=== PATIENT | female | born 1965 | race Two or more races ===

== ENCOUNTER 2018-05-28 07:11 | Outpatient (CLI) | payer OTHER | END 2018-05-28 08:55 | disposition home or self-care (01) | LOC: SONOGRAMA 07:11 | DX: E04.2 Nontoxic multinodular goiter (principal) ==

== ENCOUNTER 2025-03-04 04:50 | Day surgery (SDC) | payer OTHER ==
[2025-02-26 08:29] LABS: PH,URINE 5.5 (5.0-8.0); URINE APPEARANCE Clear; URINE BILIRRUBIN Negative (NEGATIVE); URINE BLOOD Negative; URINE COLOR Yellow; URINE GLUCOSE Negative (NEGATIVE); URINE KETONE Negative (NEGATIVE); URINE LEUKOCYTE Negative; URINE NITRATE Negative; URINE PROTEIN Negative (NEGATIVE); URINE UROBILINOGEN 0.2 E.U./dl
[2025-02-26 08:31] LABS: HEMATOCRIT 38.3 % (36.0-45.00); HEMOGLOBIN 13.1 g/dL (12.0-15.00); MEAN CELL VOLUME 85.6 fL (80.00-100.00); MEAN CORPUSCULAR HEMOGLOBIN 29.2 pg (27.00-32.0); MEAN CORPUSCULAR HGB CONC 34.1 g/dl (32.0-36.0); PLATELET COUNT 372 K/uL (150-450); RED BLOOD COUNT 4.47 M/uL (4.00-6.00); RED CELL DISTRIBUTION WIDTH 12.7 % (11.5-14.5)
[2025-02-26 08:33] LABS: URINE BACTERIA 1512.6 uL (0.0-1933); URINE EPITHELIAL CELLS 98.7 uL (0.0-38.8); URINE RBC 4.1 uL (0.0-20.8); URINE WBC 54.2 uL (0.0-23.2)
[2025-02-26 08:47] VITALS: BP 150/78
[2025-02-26 09:00] LABS: INR 1.02; PARTIAL THROMBOPLASTIN TIME 26.8 SECONDS (22.0-34.0)
[2025-02-26 09:11] LABS: PROTHROMBIN TIME 11.1 SECONDS (9.0-11.5)
[2025-02-26 09:16] LABS: URINE CAST 0.44 uL (0.0-1.40)
[2025-02-26 09:21] LABS: ALBUMIN 3.9 gm/dL (3.4-5.0); BILIRUBIN TOTAL 0.59 mg/dL (0.3-1.2); CALCIUM 9.6 mg/dL (8.5-10.1); CREATININE SERUM 0.6 mg/dL (0.55-1.02); GFR 101.97; POTASSIUM 4.12 mEq/L (3.5-5.1); TOTAL PROTEIN 7.9 gm/dL (6.4-8.2)
[~2025-03-04] VITALS: Ht 162.6 cm; Wt 74.4 kg
[2025-03-04] MEDS ORDERED: CEFAZOLIN SODIUM 1,000 MG VIAL ONE ×3 (07:09→10:08)
[2025-03-04] MEDS ORDERED: BUPIVACAINE HCL/MPF 0.5% 30ML VIAL ONE (07:21)
[2025-03-04] MEDS ORDERED: SUGAMMADEX SODIUM 200 MG/2 ML VIAL IV ONE ×2 (09:23→09:30)
[2025-03-04] MEDS ORDERED: FAMOTIDINE/PF 20 MG/10 ML SYRINGE IV SCH (09:45)
[2025-03-04] MEDS ORDERED: CEFAZOLIN SODIUM 1,000 MG VIAL IV SCH (09:45)
[2025-03-04] MEDS ORDERED: FAMOTIDINE/PF 20 MG/2 ML VIAL ONE (10:08)
[2025-03-04] MEDS ORDERED: MORPHINE SULFATE 4 MG/ML VIAL IV ONE (11:10)
== END 2025-03-04 13:45 | disposition home or self-care (01) ==
LOC: CIR.AMB 04:50
PROVIDERS: ATTEND Specialist
DX: K80.10 Calculus of gallbladder with chronic cholecystitis without obstruction (principal)

== ENCOUNTER → 2025-03-11 08:00 | Outpatient (CLI) | payer OTHER | END | disposition home or self-care (01) | LOC: LAB 08:00 | PROVIDERS: ATTEND Specialist | DX: N39.0 Urinary tract infection, site not specified (principal) ==